=== PATIENT | male | born 1950 | race African-American/Black ===

== ENCOUNTER 2023-08-07 14:22 | Emergency (ER) | payer BC, MEDICAID ==
[~2023-08-07] VITALS: Ht 170.2 cm; Wt 75.0 kg
[2023-08-07 14:27] VITALS: O2SAT 98
[2023-08-07] MEDS ORDERED: KETOROLAC 30MG/ML VIAL IV STA (14:35)
[2023-08-07 15:18] LABS: BASOPHILS % 0.5 % (0.0-2.0); EOSINOPHILS % 3.6 % (0.0-5.0); HEMATOCRIT. 40.1 % (42.0-52.0); LYMPHOCYTES % 13.2 % (20.0-50.0); MEAN CORPUSCULAR HEMOGLOBIN 29.6 pg (28.0-32.0); MEAN CORPUSCULAR HGB CONC 32.5 g/dL (31.0-37.0); MEAN CORPUSCULAR VOLUME 91.3 fL (80.0-94.0); MEAN PLATELET VOLUME 8.9 fl (7.4-10.4); MONOCYTES % 9.5 % (2.0-8.0); NEUTROPHILS % 73.2 % (40.0-76.0); PLATELET 157 x1000/uL (130-400); RED BLOOD CELL COUNT 4.39 mill/uL (4.7-6.1); RED CELL DISTRIBUTION WIDTH 15.5 % (11.6-14.6); WHITE BLOOD COUNT 6.2 x1000/uL (4.5-11.0)
[2023-08-07 15:45] LABS: CHLORIDE 111 mEq/L (98-107); INDEX HEMOLYSI 2 (1-3); INDEX ICTERIC 1 (1-4); INDEX LIPEMIC 1 (1-3); POTASSIUM 3.4 mEq/L (3.5-5.1); SODIUM 143 mEq/L (136-145)
[2023-08-07 15:57] LABS: ALANINE AMINOTRANSFERASE 29 IU/L (13-61); ALBUMIN 3.1 g/dL (3.4-5.0); ASPARTATE AMINOTRANSFERASE 35 IU/L (15-37); BILIRUBIN TOTAL 0.7 mg/dL (0.1-1.0); CALCIUM 8.8 mg/dL (8.5-10.1); CARBON DIOXIDE 25 mEq/L (21-32); CREATININE 1.4 mg/dL (0.6-1.3); GLUCOSE 102 mg/dL (70-105); NT PRO B-TYPE NATRIURETIC PEP 239 pg/mL (5-125); PROTEIN TOTAL 6.8 g/dL (6.0-8.3); TROPONIN I HIGH SENSITIVITY 24 ng/L (<78); UREA NITROGEN BLOOD 18 mg/dL (7-21)
[2023-08-07 17:22] LABS: TROPONIN I HIGH SENSITIVITY 25 ng/L (<78)
[2023-08-07 18:27] LABS: TROPONIN I HIGH SENSITIVITY 21 ng/L (<78)
[2023-08-07] MEDS ORDERED: HYDRALAZINE 20MG/ML VIAL IV ONE (20:15)
[2023-08-07 22:04] VITALS: BP 121/58; PULSE 71; RESP 18; TEMP 98.8
== END 2023-08-07 22:50 | disposition short-term general hospital (02) ==
LOC: ER 14:33 → CANBEDREQ 18:22 → ER 22:50
DX: R07.2 Precordial pain (principal); J45.909 Unspecified asthma, uncomplicated; I11.0 Hypertensive heart disease with heart failure; I50.9 Heart failure, unspecified; E11.9 Type 2 diabetes mellitus without complications; I25.2 Old myocardial infarction
CPT/HCPCS: 99285; 96374; 71045; 96375; 80053; 83880; 85025; 84484; 82803; 36415; J0360; J1885